=== PATIENT | female | born 1995 | race Caucasian/White ===

== ENCOUNTER 2016-12-01 01:59 | Inpatient (IN) | payer OTHER ==
[2016-12-01] VITALS (27 sets, daily range): BP systolic 99–144; BP diastolic 52–76
[2016-12-01] MEDS ORDERED: LACTATED RINGER'S 1000 ML IV ONE (04:30)
[2016-12-01 05:26] LABS: MEAN CORPUSCULAR HEMOGLOBIN 29.7 pg (27.0-33.0); MEAN CORPUSCULAR HGB CONC 34.1 g/dl (32.0-36.5); MEAN CORPUSCULAR VOLUME 87.2 fl (80.0-96.0); RED CELL DISTRIBUTION WIDTH 13.2 % (11.5-14.5); WHITE BLOOD COUNT 12.5 K/mm3 (4.0-10.0)
[2016-12-01] MEDS ORDERED: PROMETHAZINE INJ 25 MG/ML VIAL (J2550) IV ONE (06:00)
[2016-12-01] MEDS ORDERED: BUTORPHANOL 2 MG/ML INJ (J0595) IV ONE (06:00)
[2016-12-01] MEDS: LR 1,000 ML IV SCH ×2 (06:15→11:24)
--- NOTE | 2016-12-01 10:57 | IPNPDOC ---
Text Note Date of Service The patient was seen on 12/01/16. NOTE SBAR from Dr Story at 0830. Uncomplicated and PMH. Chart reviewed. SROM 0930. NST Cat 1, reg ctx's, now really hurting. Cx /0. To tub then epidural. Recheck at 1300, sooner prn. Sessions VS,Mateo, I+O VS, Mateo, I+O Laboratory Tests 12/01/16 05:00 Red Blood Count 3.84 L, Mean Corpuscular Volume 87.2, Mean Corpuscular Hemoglobin 29.7, Mean Corpuscular Hemoglobin Concent 34.1, Red Cell Distribution Width 13.2 Vital Signs Date Time Temp Pulse Resp B/P (MAP) Pulse Ox O2 Delivery O2 Flow Rate FiO2 12/01/16 09:43 98.9 77 18 99/57 (71) SESSIONS,FREDI Sheffield MD Dec 01, 2016 10:57
[2016-12-01] MEDS ORDERED: OXYTOCIN 30 UNITS IN 0.9% NaCl 500ML IV BAG (J2590) As Ordered ONE (11:36)
[2016-12-01] MEDS ORDERED: FENTANYL 2MCG/ML ROPIVACAINE 0.2% IN 0.9% NACL 200ML IVBAG As Ordered ONE (11:41)
--- NOTE | 2016-12-01 13:01 | HPE ---
DATE OF ADMISSION: 12/01/2016 This lady is a 21-year-old 1, para 0, last menstrual period (LMP) 03/02/2017, estimated date of confinement (EDC) 12/07/2016, at 39 weeks of gestation. Was having Flint Franco contractions over the last several hours and came in for an evaluation. No vaginal bleeding. No vaginal loss. Laboratories show A+, HIV negative, hepatitis negative, rapid plasma reagin (RPR) negative, rubella immune, varicella immune. Urine negative. Gonorrhea and chlamydia are negative. 1-hour glucose 86. Group B streptococcus (GBS) is negative. She suffers from anemia. On examination, she appears distressed when she is having contractions. She has a category 1 strip with good accelerations, 1 cm thick anterior. No vaginal bleeding or loss. Urine 1.015, pH 7, trace of blood. Blood pressure 115/55, respirations 18, pulse 72, temperature is not available. She is definitely having occasional tightenings and contractions, irregularity, with good baseline heart, good accelerations, 15 x 15 beats, at least three in the last 10 minutes. The rest the examination is unremarkable. She is normocephalic, atraumatic. Neck: Full range of motions. Pupils equal and reactive to light. Distal pulses are symmetric. No evidence of deep venous thrombosis (DVT), pulmonary embolism (PE), or superficial phlebitis. Thyroid is midline. No jugular venous distention (JVD). Lungs are clear bilaterally to bases. No wheezes or rhonchi. No costovertebral angle (CVA) tenderness. Appropriate symphysis fundus height. Four quadrant bowel sounds are noted. No rashes, lesions, or pruritus. No arthralgia or myalgia. No complaints of cough, wheezes, shortness of breath, or dyspnea on exertion. No chest pain. No bleeding. Neuro complete. No incontinency, urgency, or frequency. No nausea, vomiting, diarrhea, or constipation. No diabetic issues. Gynecology ([employer]) history is unremarkable. PAST MEDICAL HISTORY: Unremarkable. SURGICAL HISTORY: Unremarkable. FAMILY HISTORY: Noncontributory. She does not smoke or drink or abuse drugs. She is to a soldier, and there is no domestic violence. In summary, we have a 39+ week of gestation in early labor, 1 cm dilated. Reassessment in 1 hour. If the patient remains the same, will be discharged with precautions. Otherwise, she will be kept in active labor. In summary, we have a term gestation with Flint Franco contractions.
[2016-12-01] MEDS ORDERED: LACTATED RINGER'S 1000 ML IV PRN (13:15)
[2016-12-01] MEDS ORDERED: diphenhydrAMINE INJ 50MG/ML VIAL (J1200) IV PRN (13:15)
[2016-12-01] MEDS ORDERED: EPIDURAL/PCA KEYS XX PRN (13:15)
[2016-12-01] MEDS ORDERED: EPIDURAL COMMENT XX SCH (13:15)
[2016-12-01] MEDS ORDERED: REFRIGERATOR IV KEYS XX PRN (13:15)
[2016-12-01] MEDS ORDERED: NALOXONE INJ 0.4 MG/1 ML VIAL (J2310) IV PRN (13:15)
[2016-12-01] MEDS ORDERED: FENTANYL/ROPIVACAINE/NACL BAG 200 ML EPIDURAL SCH (13:15)
[2016-12-01] MEDS ORDERED: ePHEDrine SULFATE 25 MG/5 ML(5MG/ML) SYRINGE IV PRN (13:15)
[2016-12-01] MEDS ORDERED: ONDANSETRON 4MG/2ML VIAL (J2405) IV PRN (13:15)
--- NOTE | 2016-12-01 13:49 | IPNPDOC ---
Text Note Date of Service The patient was seen on 12/01/16. NOTE NST Cat 2, a few lates noted but easily fixed with pos change and O2. Epidural done 1.5 hrs ago Cx C/C/+2, RENATA start pushing Sessions VS,Mateo, I+O VS, Mateo I+O Laboratory Tests 12/01/16 05:00 Red Blood Count 3.84 L, Mean Corpuscular Volume 87.2, Mean Corpuscular Hemoglobin 29.7, Mean Corpuscular Hemoglobin Concent 34.1, Red Cell Distribution Width 13.2 Vital Signs Date Time Temp Pulse Resp B/P (MAP) Pulse Ox O2 Delivery O2 Flow Rate FiO2 12/01/16 12:55 74 114/65 (81) 12/01/16 10:48 98.7 20 SESSIONS,FREDI Sheffield MD Dec 01, 2016 13:49
[2016-12-01] MEDS ORDERED: OXYTOCIN DRIP 30 UNITS in APPROPRIATE DILUENT 1 EA IV SCH ×2 (14:45→16:33)
[2016-12-01] MEDS ORDERED: LR 1,000 ML IV SCH (14:45)
--- NOTE | 2016-12-01 16:13 | DNPDOC ---
[facility] Delivery Note Delivery Note DATE OF DELIVERY: Dec 01, 2016 at 04:27 PREDELIVERY DIAGNOSIS: 39+1/7 weeks' gestation and labor. POST DELIVERY DIAGNOSIS: Delivered, active labor. PROCEDURE: Spontaneous vaginal delivery PHOTOGRAPHIC HAND DEVELOPER: Dr. Louise ANESTHESIA: Epidural ESTIMATED BLOOD LOSS: 400 mL. FINDINGS: 8 pound 1 ounce male , Score 9/9, nuchal cord times 1 DELIVERY SUMMARY: FR staying in the 80-90's inbetween ctx's for about 10 min, counseled to undergo low vacuum delivery, station +3. Informed consent obtained , disc of R/B/I/A. OLAF. Kiwi vac placed and with one steady crop puller 1 ctx brought to +4 then the Kiwi would not maintain suction, not a pop-off. Replaced with a second Kiwi and the same event happened with next ctx/set of pushes. NST reassuring at this point, no longer staying down b/w ctx's therefore vac abandoned. At this point at +5 and significant tissue dystocia noted, counseled to undergo ML epis. Done w/o difficulty. del'd OLAF, loose nuchal cord reduced, followed by ant/post shoulders, slow but steady progress. Infant to abd/towel. Dr [place], File Conversion Operator present. Cord C/C by FOB. Placenta intact with slight traction, massage. Fundus firm and pit going. ML lac repaired with 3-0 vicryl in standard fashion, good cosmesis/ hemostasis. Sessions MD LOUISE,FREDI Sheffield MD Dec 01, 2016 16:13
[2016-12-01] MEDS ORDERED: ACETAMINOPHEN TAB 650MG DOSE (2X325MG) PO PRN (16:45)
[2016-12-01] MEDS ORDERED: MEASLES,MUMPS,RUBELLA VACCINE INJ (MMR-II) (90707) SC SCH (16:45)
[2016-12-01] MEDS ORDERED: RHOGAM 300 MCG (1500 IU) INJ (J2790) IM SCH (16:45)
[2016-12-01] MEDS ORDERED: METOCLOPRAMIDE INJ 10MG/2ML VIAL (J2765) IV PRN (16:45)
[2016-12-01] MEDS ORDERED: DIBUCAINE 1% OINTMENT 30GM TOP PRN (16:45)
[2016-12-01] MEDS: DOCUSATE SODIUM 100 MG CAP PO SCH (20:17)
[2016-12-01] MEDS: IBUPROFEN 800 MG TAB PO PRN (23:42)
[2016-12-02 05:53] VITALS: BP 110/62
--- NOTE | 2016-12-02 07:18 | IPNPDOC ---
Text Note Date of Service The patient was seen on 12/02/16. NOTE PPD1 prog note States feeling well, no complaints. No heavy VB. Pain controlled. Voiding, ambulatory. Bonding well and breast feeding well. No CP/SOB/LP VSSAF CTAB RRR Ut at U-2, firm Ext no CCE a/p: Doing well. d/c likely tomorrow. Sessions VS,Mateo, I+O VSMateo I+O Vital Signs Date Time Temp Pulse Resp B/P (MAP) Pulse Ox O2 Delivery O2 Flow Rate FiO2 12/02/16 05:53 98.2 67 18 110/62 (78) I&O- Last 24 Hours up to 6 AM 12/02/16 06:00 Output Total 700 ml Balance -700 ml SESSIONS,FREDI Sheffield MD Dec 02, 2016 07:18
[2016-12-02] MEDS: DOCUSATE SODIUM 100 MG CAP PO SCH ×2 (08:47→21:23)
[2016-12-02] MEDS: PRENATAL VITAMIN TAB PO SCH (08:47)
[2016-12-02] MEDS: IBUPROFEN 800 MG TAB PO PRN (17:43)
[2016-12-02 17:57] VITALS: BP 135/70
[2016-12-03] MEDS: IBUPROFEN 800 MG TAB PO PRN (03:26)
[2016-12-03 06:32] VITALS: BP 116/71
[2016-12-03] MEDS ORDERED: COLA100C3 PO (07:18)
[2016-12-03] MEDS ORDERED: PRENTAB9 PO (07:19)
[2016-12-03] MEDS ORDERED: ACET50TA PO (07:20)
[2016-12-03] MEDS ORDERED: IBUP-1114 PO (07:20)
[2016-12-03] MEDS ORDERED: NUPE1OIN2 TOP (07:21)
[2016-12-03] MEDS: PRENATAL VITAMIN TAB PO SCH (07:27)
[2016-12-03] MEDS: DOCUSATE SODIUM 100 MG CAP PO SCH (07:27)
--- NOTE | 2016-12-04 17:16 | IPN ---
DATE: 12/03/2016 This patient has requested circumcision of their male infant. After discussing the risks and benefits of circumcision, the medical and nonmedical indications, the penile block, and aftercare, both expressed understanding of penile block and aftercare, signed and witnessed the consent form. We await the clearance by the pattern cutter.
== END 2016-12-03 11:30 | disposition home or self-care (01) | DRG 775 ==
LOC: M LDO 01:59 → M LDI 04:27 → M OBS 18:30
PROVIDERS: ADMIT Obstetrics & Gynecology; ATTEND Obstetrics & Gynecology
PROC: 0W8NXZZ Division of Female Perineum, External Approach (ICD-10-PCS; principal; 2016-12-01)
PROC: 0HQ9XZZ Repair Perineum Skin, External Approach (ICD-10-PCS; 2016-12-01)
DX: O69.82X0 Labor and delivery complicated by other cord entanglement, without compression, not applicable or unspecified (principal); Z37.0 Single live birth; Z3A.39 39 weeks gestation of pregnancy; O70.0 First degree perineal laceration during delivery

== ENCOUNTER → 2017-10-10 | Outpatient (REF) | payer OTHER | LOC: M SFHCLERA 11:12 | DX: J02.9 Acute pharyngitis, unspecified (principal) ==